=== PATIENT | female | born 1990 | race Caucasian/White ===

== ENCOUNTER 2019-02-04 15:35 | Emergency (ER) | payer SELFPAY ==
[2019-02-04] MEDS ORDERED: ACETAMINOPHEN 325 MG TABLET PO ONE (16:17)
--- NOTE | 2019-02-04 16:18 | ER Document Report ---
HPI - HPI Patient complains to provider of: left knee pain Time Seen by Provider: 02/04/19 16:12 Pain Level: 5 Context: Patient voices approximately 1 week ago she felt her left knee "give out". States she was trying to back up when there was a divot in the pavement. States she tripped and her left knee "kind of turned in a weird way." Patient voices she was seen at [facility] shortly after this happened, did get XRAY but stated that the pain continues. She thinks the swelling has increased. Pt voices she is taking motrin and tylenol OTC. Denies any other injuries. - REPRODUCTIVE Reproductive: DENIES: : Past Medical History - General Information source: Patient - Social History Smoking Status: Current Every Day Smoker Frequency of alcohol use: None Drug Abuse: None Family History: Arthritis, Hyperlipidemia, Hypertension, Thyroid Disfunction Patient has suicidal ideation: No Patient has homicidal ideation: No - Past Medical History Cardiac Medical History: Reports: Hx DVT - LEFT FEMORAL VEIN 3-4 YRS AGO Denies: Hx Coronary Artery Disease, Hx Hypertension, Hx Pulmonary Embolism Pulmonary Medical History: Reports: Hx Asthma Endocrine Medical History: Reports: Hx Hypothyroidism. Denies: Hx Diabetes Mellitus Type 1, Hx Diabetes Mellitus Type 2 Renal/ Medical History: Reports: Hx Ovarian Cysts Musculoskeletal Medical History: Reports Hx Musculoskeletal Deformity, Reports Hx Musculoskeletal Trauma Psychiatric Medical History: Reports: Hx Anxiety Traumatic Medical History: Reports: Hx Fractures - ankle- 5 years ago Past Surgical History: Reports: Hx Abdominal Surgery - gastric bypass, abdominoplasty, Hx Adenoidectomy, Hx Section, Hx Gastric Bypass Surgery - AND ABDOMINOPLASTY, Hx Myringotomy, Hx Tonsillectomy - adnoids - Immunizations Immunizations up to date: No Hx Diphtheria, Pertussis, Tetanus Vaccination: Yes Hx Pneumococcal Vaccination: 03/18/00 Vertical Provider Document - CONSTITUTIONAL Agree With Documented VS: Yes Notes: GENERAL: Alert, interacts well. No acute distress. HEAD: Normocephalic, atraumatic. EYES: Pupils equal, round, and reactive to light. Extraocular movements intact. ENT: Oral mucosa moist, tongue midline. NECK: Full range of motion. Supple. Trachea midline. LUNGS: Clear to auscultation bilaterally, no wheezes, rales, or rhonchi. No respiratory distress. HEART: Regular rate and rhythm. No murmur ABDOMEN: Soft, non-tender. Non-distended. Bowel sounds present in all 4 quadrants. EXTREMITIES: Moves all 4 extremities spontaneously. normal radial and dorsalis pedis pulses bilaterally. No cyanosis. Generalized swelling noted left anterior knee, pain on valgus and varus maneuvers. No anterior jaw pain noted. Capillary refill less than 2 seconds distally left lower remedy. BACK: no cervical, thoracic, lumbar midline tenderness. No saddle anesthesia, normal distal neurovascular exam. NEUROLOGICAL: Alert and oriented x3. Normal speech. cranial nerves II through XII grossly intact PSYCH: Normal affect, normal mood. SKIN: Warm, dry, normal turgor. No rashes or lesions noted. - INFECTION CONTROL TRAVEL OUTSIDE OF THE [place] IN LAST 30 DAYS: No Course - Re-evaluation Re-evalutation: 02/04/19 17:19 Knee X-Ray 02/04/19 16:17 IMPRESSION: No acute osseous abnormality of the left knee. Discussed with patient need for follow-up with orthopedics, [facility], [facility] as patient is uninsured. Discussed use of knee immobilizer and crutches. Discussed close return precautions. Patient stable for discharge. - Vital Signs Vital signs: Temp Pulse Resp BP Pulse Ox 97.8 F 85 18 134/56 H 100 02/04/19 15:46 02/04/19 15:46 02/04/19 15:46 02/04/19 15:46 02/04/19 15:46 Procedures - Immobilization left knee Pre-Proc Neuro Vasc Exam: Normal Immobilizer type: Knee immobilizer Performed by: PCT Post-Proc Neuro Vasc Exam: Normal Alignment checked and good: Yes Discharge - Discharge Clinical Impression: Left knee pain Qualifiers: Chronicity: acute Qualified Code(s): M25.562 - Pain in left knee Condition: Stable Disposition: HOME, SELF-CARE Instructions: Use of Crutches ([facility]), Ice & Elevation ([facility]), Suspected Internal Knee Injury ([facility]), Knee Immobilizing Splint ([facility]), Sprained Knee ([facility]) Additional Instructions: As we discussed you have been seen and treated in the emergency department for an injury to your left knee. I provided phone numbers for orthopedics, please follow-up with them as you may need an MRI. Please also follow-up with [facility], [facility]. These are to clinics you can see a provider even though you are uninsured. Please return to the emergency room for any concerns. Forms: Return to Work Referrals: [facility] [Provider Group] - Follow up as needed
[2019-02-04] MEDS ORDERED: OXYCODONE-ACETAMINOPHEN 5-325 MG TABLET PO ONE (16:19)
--- NOTE | 2019-02-04 17:02 | RADIOLOGY REPORT (SQ) ---
EXAM DESCRIPTION: KNEE LEFT 4 VIEW COMPLETED DATE/TIME: 02/04/2019 4:46 pm REASON FOR STUDY: pain COMPARISON: None. NUMBER OF VIEWS: Four views. TECHNIQUE: AP, lateral, and both oblique radiographic images acquired of the left knee. LIMITATIONS: None. FINDINGS: MINERALIZATION: Normal. BONES: No acute fracture or dislocation. No osseous lesion or osteophytosis. JOINT: The joint spaces are preserved. There is no sizable joint effusion. The quadriceps and ventura lar tendon silhouettes are intact. OTHER: Dystrophic calcifications in the anterior subcutaneous tissues. IMPRESSION: No acute osseous abnormality of the left knee. TECHNICAL DOCUMENTATION: JOB ID: [id number] [employer]- All Rights Reserved Reading location - IP/workstation name: [email or web address]
[2019-02-04 17:34] VITALS: BP 127/61
== END 2019-02-04 17:34 | disposition home or self-care (01) ==
LOC: ER 15:35
DX: M25.562 Pain in left knee (principal); M25.462 Effusion, left knee; F17.200 Nicotine dependence, unspecified, uncomplicated; J45.909 Unspecified asthma, uncomplicated; Z86.718 Personal history of other venous thrombosis and embolism; Z98.84 Bariatric surgery status
CPT/HCPCS: 82962; 73564; L1830; 99283